=== PATIENT | female | born 1930 | race Caucasian/White ===

== ENCOUNTER → 2020-01-12 | Outpatient (CLI) | payer MEDICARE ==
[~2020-01-12] MED LIST: ESOM20 PO; LISHYD1012 PO; LORA.5 PO; NAPR500 PO; OXYC10ER PO; PRED5 PO; TRAZ50 PO
[2020-01-19 21:00] LABS: U Amphetamine Screen Not Detected; U Barbituate Screen Not Detected; U Benzodiazapine Screen Not Detected; U Buprenorphine Screen Not Detected; U Cannabinoids Screen Not Detected; U Cocaine Screen Not Detected; U Methadone Screen Not Detected; U Methamphetamine Screen Not Detected; U Opiates Screen Not Detected; U Oxycodone Screen DETECTED; U Phencyclidine Screen Not Detected; U Propoxyphene Screen Not Detected
== END | disposition home or self-care (01) ==
LOC: LAB 14:25 → LAB SHORT 14:25
PROVIDERS: Internal Medicine
DX: Z51.81 Encounter for therapeutic drug level monitoring (principal); Z79.891 Long term (current) use of opiate analgesic

== ENCOUNTER → 2020-01-12 | Outpatient (CLI) | payer MEDICARE | LOC: LAB 14:25 → LAB SHORT 14:25 → LAB FUT 01-02 14:55 → EDSTATUS 01-02 14:55 | DX: M48.062 Spinal stenosis, lumbar region with neurogenic claudication (principal) ==